=== PATIENT | male | born 1985 | race African-American/Black ===

== ENCOUNTER 2018-08-09 23:54 | Emergency (ER) | payer SELFPAY | END 2018-08-10 00:31 | disposition home or self-care (01) | LOC: ERS 23:54 | DX: Z20.2 Contact with and (suspected) exposure to infections with a predominantly sexual mode of transmission (principal) | CPT/HCPCS: 99281 ==

== ENCOUNTER 2020-08-27 01:59 | Emergency (ER) | payer SELFPAY | END 2020-08-27 02:57 | disposition home or self-care (01) | LOC: ERS 01:59 | DX: S50.362A Insect bite (nonvenomous) of left elbow, initial encounter (principal); L03.114 Cellulitis of left upper limb; F17.210 Nicotine dependence, cigarettes, uncomplicated; W57.XXXA Bitten or stung by nonvenomous insect and other nonvenomous arthropods, initial encounter ==

== ENCOUNTER 2021-01-19 10:43 | Emergency (ER) | payer OTHER, SELFPAY ==
[2021-01-19] MEDS ORDERED: Ketorolac Tromethamine 30 MG/ML VIAL ONE (13:31)
== END 2021-01-19 13:35 | disposition home or self-care (01) ==
LOC: ERS 10:43
DX: S49.92XA Unspecified injury of left shoulder and upper arm, initial encounter (principal); F17.210 Nicotine dependence, cigarettes, uncomplicated; V49.9XXA Car occupant (driver) (passenger) injured in unspecified traffic accident, initial encounter
CPT/HCPCS: 96372; J1885